=== PATIENT | female | born 1990 | race African-American/Black ===

== ENCOUNTER 2016-05-16 19:56 | Emergency (ER) | payer BC ==
[~2016-05-16 19:56] MED LIST: PRENATAL GUMMI1 EACH
[2016-05-16 20:18] LABS: URINE SOURCE CLEAN CATCH
[2016-05-16 20:21] LABS: URINE APPEARANCE CLEAR; URINE BILIRUBIN NEG (NEG); URINE BLOOD TRACE-INTACT (NEG); URINE COLOR YELLOW; URINE GLUCOSE NEG (NORM); URINE KETONE NEG (NEG); URINE LEUKOCYTE ESTERASE TRACE (NEG); URINE NITRATE NEG (NEG); URINE PH 6.5 (5-8); URINE PROTEIN NEG (NEG); URINE UROBILINOGEN 0.2 MG/DL (NORM)
[2016-05-16 20:22] LABS: MICRO INDICATED? YES
[2016-05-16 20:25] LABS: BASOPHIL# 0.1 X10e3 (0-0.3); BASOPHIL% 0.6 % (0-2.5); EOSINOPHIL# 0.2 X10e3 (0-0.7); EOSINOPHIL% 1.6 % (0.0-7.0); HEMATOCRIT 34.2 % (35.0-45.0); HEMOGLOBIN 10.6 gm/dL (12.0-16.0); LYMPHOCYTE% 24.8 % (17.0-45.0); MEAN CELL VOLUME 72.1 FL (83-96); MEAN CORPUSCULAR HEMOGLOBIN 22.5 PG (28-34); MEAN CORPUSCULAR HGB CONC 31.1 g/dL (30-36); MONOCYTE# 0.8 X10e3 (0-1.0); NEUTROPHIL# 7.9 X10e3 (1.5-7.1); PLATELET COUNT 292 X10e3 (140-420); RED BLOOD COUNT 4.74 X10e (3.90-5.30); RED CELL DISTRIBUTION WIDTH 16.5 % (11.0-15.5)
[2016-05-16 20:25] LABS: CULTURE INDICATED? NO; URINE AMORPHOUS SEDIMENT AMORP URATES; URINE BACTERIA NEG (NEG); URINE SQUAMOUS EPITHELIAL CELL OCCAS /[HPF]; URINE WBC 0-2 /[HPF] (0-5)
[2016-05-16 20:30] LABS: DIFF IND NO
[2016-05-16 20:43] LABS: ALKALINE PHOSPHATASE 49 U/L (32-92); ALT (SGPT) 11 U/L (10-40); AST (SGOT) 14 U/L (10-42); BILIRUBIN,TOTAL 0.6 mg/dL (0.2-2.0); BLOOD UREA NITROGEN 7 mg/dL (9-23); CALCIUM SERUM 9.2 mg/dL (8.4-10.2); CARBON DIOXIDE 25 mmol/L (22-31); CHLORIDE 103 mmol/L (100-111); CREATININE SERUM 0.5 mg/dL (0.6-1.4); GLOM FILT RATE Estimated ABOVE60 mL/min (>60); GLUCOSE FASTING 90 mg/dL (70-110); POTASSIUM 3.6 mmol/L (3.5-5.1); PROTEIN TOTAL SERUM 7.5 g/dL (6.0-8.3); SODIUM 135 mmol/L (135-145)
[2016-05-19 10:10] LABS: CHLAMYDIA TRACH Not Detected (Not Detected); N GONOR Not Detected (Not Detected)
[2016-06-08] MEDS ORDERED: MACROBID100 M1 PO (09:57)
== END 2016-05-16 21:41 | disposition home or self-care (01) ==
LOC: SED 19:56
PROVIDERS: Nurse Practitioner Family
DX: O20.9 Hemorrhage in early pregnancy, unspecified (principal); N64.4 Mastodynia; I10 Essential (primary) hypertension
CPT/HCPCS: 36415; 80053; 81003; 84702; 85025; 86900; 86901; 87491; 87591; 87808; 87905; 99284

== ENCOUNTER 2016-06-06 15:45 | Emergency (ER) | payer BC ==
--- NOTE | ~2016-06-06 | US63 ---
[facility] A Service of [facility] RADIOLOGY TEXT RESULTS PATIENT: DALJIT JIMENES LOCATION: SED : [birth year] UNIT #: [id number] AGE: [address]: Jung Dominguez MD SEX: F ORDER DR: [id number] [address] [address] [id number] E MR#: [id number] Acc #: [id number] NAME: DALJIT JIMENES : 1990 SEX: F STUDY DATE/TIME: 06/06/2016 16:21 UNIT: SED ROOM: STUDY DESCRIPTION: US /Mat >14Wk / Attending Physician: Jung Dominguez M.D. Ordering Physician: Jung Dominguez M.D. Primary Care Physician: Alexey Quinn M.D. MEDICAL IMAGING REPORT This report is preliminary unless electronic signature is present. EXAM Pelvic ultrasound, 06/06/2016 HISTORY Vaginal bleeding since yesterday. with positive beta HCG. FINDINGS Ultrasound examination of the pelvis was performed with transabdominal technique and endovaginal technique for improved visualization of the uterus and adnexa. A single intrauterine fetus is identified with measurements indicating estimated gestational age of 9 weeks 0 days. However, no cardiac activity is identified, concerning for demise. Slight lobulation of the gestational sac. No free fluid or abnormal fluid collection in the pelvis. The uterine contour is normal. Both ovaries are unremarkable. No ovarian mass. Blood flow is noted in both ovaries on color Doppler. IMPRESSION 1. Single intrauterine fetus is identified with size indicating gestational age of 9 weeks. However, no cardiac activity is identified concerning for demise. 2. No free fluid. 3. Blood flow is noted in both ovaries. No ovarian or adnexal mass. Dictated by... Abhinav Almazan M.D. THIS IS AN ELECTRONICALLY VERIFIED REPORT Abhinav Almazan M.D. at 06/07/2016 3:52 PM [facility] A Service of [facility] RADIOLOGY TEXT RESULTS PATIENT: DALJIT JIMENES [place] [facility] [place] UNIT #: [id number] AGE: [address]: Jung Dominguez MD SEX: F ORDER DR: ALYSSA/marquita TD: 06/07/2016 04:31 JOB #: [id number] MEDICAL IMAGING REPORT Page 1 of 1
[2016-06-06 14:13] LABS: URINE SOURCE CLEAN CATCH
[2016-06-06 14:20] LABS: URINE APPEARANCE HAZY; URINE BILIRUBIN NEG (NEG); URINE BLOOD 3+ (NEG); URINE COLOR YELLOW; URINE GLUCOSE NEG (NORM); URINE KETONE NEG (NEG); URINE LEUKOCYTE ESTERASE NEG (NEG); URINE NITRATE POS (NEG); URINE PH 7.5 (5-8); URINE PROTEIN TRACE (NEG); URINE UROBILINOGEN 0.2 MG/DL (NORM)
[2016-06-06 14:24] LABS: MICRO INDICATED? YES
[2016-06-06 14:46] LABS: CULTURE INDICATED? YES; URINE BACTERIA 4+ (NEG); URINE SQUAMOUS EPITHELIAL CELL MANY /[HPF]
[2016-06-08] MEDS ORDERED: MACROBID100 M1 PO (09:57)
== END 2016-06-06 17:43 | disposition home or self-care (01) ==
LOC: SED 15:45
PROVIDERS: Emergency Medicine
DX: O03.9 Complete or unspecified spontaneous abortion without complication (principal)
CPT/HCPCS: 36415; 76805; 81003; 84702; 87086; 87088; 87186; 99284